=== PATIENT | female | born 1960 | race Caucasian/White ===

== ENCOUNTER 2016-04-01 02:30 | Emergency (ER) | payer SELFPAY ==
[2016-04-01] MEDS ORDERED: RX INFO: IV CONTRAST WAS GIVEN 1 EACH MISC MISCELLANE PRN (03:13)
[2016-04-01] MEDS ORDERED: SODIUM CHLORIDE 0.9% 1,000 ML IV STA ×2 (03:13→04:31)
[2016-04-01] MEDS ORDERED: ACETAMINOPHEN IV (For NPO) 1,000 MG in SALINE 100 100ML.BAG IVPB STA (03:13)
[2016-04-01] MEDS ORDERED: diphenhydrAMINE 50 MG/ML 1 ML VIAL IVP STA (03:13)
--- NOTE | 2016-04-01 03:16 | ED ---
General Adult HPI - General Source: patient, EMS, RN notes reviewed Mode of arrival: EMS Limitations: no limitations <Mike Easton - Last Filed: 04/01/16 03:31> <Trae Andre - Last Filed: 04/01/16 05:12> - General Chief complaint: Headache Stated complaint: head pain Time Seen by Provider: 04/01/16 02:52 - History of Present Illness Initial comments: Patient's a 56-year-old female who presents emergency room today by EMS, the chief complaint of a headache that began at 6 PM last night. She states it was sudden onset of a headache located in the back of her head. Describes it as "throbbing". Currently rates as 08/13. Does admit that she's tried aspirin at home with no relief of symptoms. States she usually does not have headaches. Does offer further history stating that she had her hair done 2 days ago had her neck back in the sink. States unsure if this is related. Does admit that the pain is somewhat worse with rotation in certain movements of her neck. Patient does admit to some photosensitivity. She denies any other complaints or symptoms. Patient denies any recent fever, chills, shortness of breath, chest pain, back pain, abdominal pain, nausea or vomiting, numbness or tingling , dysuria or hematuria, constipation or diarrhea, visual changes, or any other complaints. (Mike Easton) - Related Data Home Medications Medication Instructions Recorded Confirmed Aspirin 325 mg PO DAILY 03/09/15 04/01/16 Ergocalciferol [Vitamin D2] 50,000 unit PO Q7D 03/09/15 04/01/16 amLODIPine [Norvasc] 10 mg PO DAILY 03/09/15 04/01/16 ALPRAZolam [Xanax] 0.25 mg PO TID PRN 04/01/16 04/01/16 DULoxetine HCL [Cymbalta] 60 mg PO DAILY 04/01/16 04/01/16 Allergies Allergy/AdvReac Type Severity Reaction Status Date / Time cephalexin monohydrate Allergy Dyspnea Verified 04/01/16 02:40 [From Keflex] Review of Systems ROS Other: All systems not noted in ROS Statement are negative. <Mike Easton - Last Filed: 04/01/16 03:31> ROS Other: All systems not noted in ROS Statement are negative. <Trae Andre - Last Filed: 04/01/16 05:12> ROS Statement: Those systems with pertinent positive or pertinent negative responses have been documented in the HPI. Past Medical History Past Medical History: Asthma, Hypertension, Myocardial Infarction (IA), Sleep Apnea/CPAP/BIPAP, Thyroid Disorder Additional Past Medical History / Comment(s): HX GEST. DIABETES. BEING CHECKED FOR SLEEP APNEA History of Any Multi-Drug Resistant Organisms: None Reported Past Surgical History: Section, Heart Catheterization, Tubal Ligation, Uterine Ablation Past Anesthesia/Blood Transfusion Reactions: Motion Sickness, Postoperative Nausea & Vomiting (PONV) Past Psychological History: Anxiety Smoking Status: Never smoker Past Alcohol Use History: Occasional Past Drug Use History: None Reported - Past Family History Father Family Medical History: Cancer <EastonMike - Last Filed: 04/01/16 03:31> General Exam Limitations: no limitations <EastonMike - Last Filed: 04/01/16 03:31> General appearance: alert, in no apparent distress Head exam: Present: atraumatic, normocephalic, normal inspection Eye exam: Present: normal appearance, PERRL, EOMI. Absent: scleral icterus, conjunctival injection, periorbital swelling ENT exam: Present: normal exam, mucous membranes moist Neck exam: Present: normal inspection. Absent: tenderness, meningismus, lymphadenopathy Respiratory exam: Present: normal lung sounds bilaterally. Absent: respiratory distress, wheezes, rales, rhonchi, stridor Cardiovascular Exam: Present: regular rate, normal rhythm, normal heart sounds. Absent: systolic murmur, diastolic murmur, rubs, gallop, clicks GI/Abdominal exam: Present: soft, normal bowel sounds. Absent: distended, tenderness, guarding, rebound, rigid Extremities exam: Present: normal inspection, full ROM, normal capillary refill. Absent: tenderness, pedal edema, joint swelling, calf tenderness Back exam: Present: normal inspection Neurological exam: Present: alert, oriented X3, CN II-XII intact Psychiatric exam: Present: normal affect, normal mood Skin exam: Present: warm, dry, intact, normal color. Absent: rash <Trae Andre - Last Filed: 04/01/16 05:12> - General Exam Comments Initial Comments: General: The patient is awake and alert, in no distress, and does not appear acutely ill. Eye: Pupils are equal, round and reactive to light, extra-ocular movements are intact. No nystagmus. There is normal conjunctiva bilaterally. No signs of icterus. Ears, nose, mouth and throat: There are moist mucous membranes and no oral lesions. Neck: The neck is supple, there is no tenderness or JVD. Cardiovascular: There is a regular rate and rhythm. No murmur, rub or gallop is appreciated. Respiratory: Lungs are clear to auscultation, respirations are non-labored, breath sounds are equal. No wheezes, stridor, rales, or rhonchi. Musculoskeletal: Normal appearance of cervical spine. No step-offs or deformities. Mild tenderness at C1, C2, C3. Patient does have paravertebral tenderness both on the left and right sides. Strength 5/5. Sensation intact. Pulses equal bilaterally 2+. Neurological: A&O x 3. CN II-XII intact, There are no obvious motor or sensory deficits. Coordination appears grossly intact. Speech is normal. Skin: Skin is warm and dry and no rashes or lesions are noted. Psychiatric: Cooperative, appropriate mood & affect, normal judgment. (Mike Easton) No neurological deficit noted (Trae Andre) Course <iMke Easton - Last Filed: 04/01/16 03:31> <Trae Andre - Last Filed: 04/01/16 05:12> Vital Signs 04/01/16 04/01/16 02:32 03:47 Temperature 98.1 F 97.8 F Pulse Rate 79 78 Respiratory 18 20 Rate Blood Pressure 159/71 149/67 O2 Sat by Pulse 94 L 98 Oximetry - Reevaluation(s) Reevaluation #1: 04/01/16 03:32 Case discussed and signed out to attending Dr Andre. (Mike Easton) Reevaluation #2: 04/01/16 05:03 Patient's headache is currently resolved (Trae Andre) Medical Decision Making <Mike Easton - Last Filed: 04/01/16 03:31> - Lab Data Result diagrams: 04/01/16 03:30 04/01/16 03:30 - Radiology Data Radiology results: report reviewed (CT brain and CT angiogram neck is negative for acute disease), image reviewed <Trae Andre - Last Filed: 04/01/16 05:12> - Medical Decision Making 56 female to ER year with sudden onset headache mild. Throbbing in nature with photophobia. Patient's headache has resolved with medication. States she does have occasional headaches. This is not the worse headache of her life, patient again remains without headache no neurological symptoms mild nausea no vomiting. (Trae Andre) - Lab Data Lab Results 04/01/16 04/01/16 Range/Units 03:30 03:30 WBC 6.7 (3.8-10.6) k/uL RBC 4.96 (3.80-5.40) m/uL Hgb 14.2 (11.4-16.0) gm/dL Hct 43.8 (34.0-46.0) % MCV 88.3 D (80.0-100.0) fL MCH 28.7 (25.0-35.0) pg MCHC 32.5 (31.0-37.0) g/dL RDW 12.7 (11.5-15.5) % Plt Count 335 (150-450) k/uL Neutrophils % 56 % Lymphocytes % 30 % Monocytes % 9 % Eosinophils % 3 % Basophils % 0 % Neutrophils # 3.8 (1.3-7.7) k/uL Lymphocytes # 2.0 (1.0-4.8) k/uL Monocytes # 0.6 (0-1.0) k/uL Eosinophils # 0.2 (0-0.7) k/uL Basophils # 0.0 (0-0.2) k/uL Sodium 142 (137-145) mmol/L Potassium 4.4 (3.5-5.1) mmol/L Chloride 108 H (98-107) mmol/L Carbon Dioxide 23 (22-30) mmol/L Anion Gap 11 mmol/L BUN 17 (7-17) mg/dL Creatinine 0.70 (0.52-1.04) mg/dL Est GFR (MDRD) Af Amer >60 (>60 ml/min/1.73 sqM) Est GFR (MDRD) Non-Af >60 (>60 ml/min/1.73 sqM) Glucose 116 H (74-99) mg/dL Calcium 10.3 H (8.4-10.2) mg/dL Total Bilirubin 0.5 (0.2-1.3) mg/dL AST 29 (14-36) U/L ALT 44 (9-52) U/L Alkaline Phosphatase 101 (38-126) U/L Total Protein 7.3 (6.3-8.2) g/dL Albumin 4.2 (3.5-5.0) g/dL Disposition <Mike Easton - Last Filed: 04/01/16 03:31> <Trae Andre - Last Filed: 04/01/16 05:12> Clinical Impression: Migraine, Tension headache Disposition: HOME SELF-CARE Condition: Good Instructions: Acute Headache (ED) Referrals: Woo Martinez DO [Primary Care Provider] - 1-2 days
--- NOTE | 2016-04-01 03:27 | CT ---
EXAMINATION TYPE: CT brain cspine wo con DATE OF EXAM: 04/01/2016 3:13 AM COMPARISON: 10/29/2009 HISTORY: Posterior head and neck pain. Prior brain without contrast on 10.29.09. CT DLP: Head 1033.40, Body 284.0 mGycm Automated exposure control for dose reduction was used. TECHNIQUE: CT scan of the head and cervical spine are performed without contrast. FINDINGS: The ventricles and sulci appear normal. There is no mass effect nor midline shift. There is no sign of intracranial hemorrhage. Calvarium appears intact. There is mild straightening of the vertebra. There is mild narrowing at C5-6 disc space. There is spu rring of the endplates at C5-6. Posterior elements are intact. Facet joints are intact. Atlantoaxial facet joint is normal. Skull base is intact. IMPRESSION: Negative CT scan of the brain. No change compared to old exam. Degenerative disc changes at C5-6. Otherwise negative CT scan of cervical spine. No fracture.
[2016-04-01 03:48] VITALS: PULSE 78
[2016-04-01 03:54] LABS: Basophils % (A) 0 %; CH 29.5; CHCM 33.5; Eosinophils # (A) 0.2 k/uL (0-0.7); Eosinophils % (A) 3 %; HCT 43.8 % (34.0-46.0); HGB 14.2 gm/dL (11.4-16.0); Luc # (Auto) 0.15; Luc % (Auto) 2; Lymphocytes % (A) 30 %; MCH 28.7 pg (25.0-35.0); MCHC 32.5 g/dL (31.0-37.0); Mean Platelet Volume 6.6; Monocytes # (A) 0.6 k/uL (0-1.0); Monocytes % (A) 9 %; Neutrophils # (A) 3.8 k/uL (1.3-7.7); Neutrophils % (A) 56 %; RBC 4.96 m/uL (3.80-5.40); RDW 12.7 % (11.5-15.5); WBC 6.7 k/uL (3.8-10.6); WBC (Perox) 6.63
[2016-04-01 04:07] LABS: ALT 44 U/L (9-52); AST 29 U/L (14-36); Alkaline Phosphatase 101 U/L (38-126); Anion Gap 11 mmol/L; Blood Urea Nitrogen 17 mg/dL (7-17); Calcium 10.3 mg/dL (8.4-10.2); Carbon Dioxide 23 mmol/L (22-30); Chloride 108 mmol/L (98-107); Glucose 116 mg/dL (74-99); Non-African American GFR(MDRD) >60 (>60 ml/min/1.73 sqM); Potassium 4.4 mmol/L (3.5-5.1); Sodium 142 mmol/L (137-145); Total Bilirubin 0.5 mg/dL (0.2-1.3); Total Protein 7.3 g/dL (6.3-8.2)
[2016-04-01 04:30] LABS: MCV 88.3 fL (80.0-100.0)
--- NOTE | 2016-04-01 04:52 | CT ---
EXAMINATION TYPE: CT angio head neck DATE OF EXAM: 04/01/2016 4:43 AM COMPARISON: NONE HISTORY: Posterior head and neck pain. CT DLP: DLP: 3077 mGycm Automated exposure control for dose reduction was used. CONTRAST: Performed with IV Contrast, patient injected with 100ml. mL of Omnipaque 350. There are 3-D post proc essed images. FINDINGS: There is normal branching pattern of the great vessels on the aortic arch. The carotid arteries are widely patent. There is normal opacification of the jugular veins. There is normal contrast opacification of the vertebral arteries. There is arterial flow in the anterior middle and posterior cerebral arteries. There is no evidence o f aneurysm or neovascularity. There is arterial flow in the vertebrobasilar artery system. There is n ormal contrast opacification of the intracranial venous sinuses. IMPRESSION: NORMAL CT ANGIOGRAM OF THE NECK. NORMAL CT ANGIOGRAM OF THE BRAIN.
[2016-04-01] MEDS ORDERED: methylPREDNISolone SOD SUCCI 125 MG/2 ML VIAL IV STA (05:11)
[2016-04-01] MEDS ORDERED: KETOROLAC 30 MG/ML 1 ML VIAL IVP STA (05:11)
[2016-04-01 05:26] VITALS: BP 139/78; RESP 18; TEMP 97.5
== END 2016-04-01 05:25 | disposition home or self-care (01) ==
LOC: EC 02:30
DX: G43.909 Migraine, unspecified, not intractable, without status migrainosus (principal); L56.8 Other specified acute skin changes due to ultraviolet radiation; I10 Essential (primary) hypertension; I25.2 Old myocardial infarction; F41.9 Anxiety disorder, unspecified; Z79.82 Long term (current) use of aspirin; Z79.899 Other long term (current) drug therapy; Z88.1 Allergy status to other antibiotic agents
CPT/HCPCS: 99284 ×2; 96374 ×2; 96375 ×3; 96361 ×3; 36415; 80053; 85025; 72125; 70496; 70450; 70498; J1200; J2930; Q9967; J1885; J0131

== ENCOUNTER → 2016-10-03 | Outpatient (CLI) | payer OTHER ==
--- NOTE | 2016-10-03 11:36 | XR ---
Right shoulder HISTORY: Right shoulder pain 3 views of the right shoulder Bone mineralization, joint spaces and alignment are maintained. Right lung apex as visualized is norm al. No fracture or dislocation. IMPRESSION: No abnormality evident to account for patient's symptoms.
== END | disposition home or self-care (01) ==
LOC: RADXRYALE 11:03
PROVIDERS: ATTEND Physician Assistant Medical
DX: M25.511 Pain in right shoulder (principal)

== ENCOUNTER 2016-11-01 09:11 | Day surgery (SDC) | payer OTHER ==
[2016-10-17 09:39] VITALS: BMI 32.4
[~2016-11-01 09:11] MED LIST: LACTATED RINGERS 1,000 ML IV SCH; LIDOCAINE 1% 20 ML VIAL (10MG/ML) FOR IV START INTRADERMA PRN
[2016-11-01] MEDS ORDERED: LACTATED RINGERS 1,000 ML IV ONE (09:21)
[2016-11-01] MEDS ORDERED: LIDOCAINE 1% 20 ML VIAL (10MG/ML) FOR IV START INTRADERMA ONE (09:22)
[2016-11-01 09:27] VITALS: RESP 18; TEMP 98.2
[2016-11-01] MEDS ORDERED: PROPOFOL 10 MG/ML 20 ML VIAL IV ONE (10:33)
--- NOTE | 2016-11-01 11:11 | P.PCN ---
Date of Procedure: 11/01/16 Preoperative Diagnosis: Postoperative Diagnosis: Procedure(s) Performed: Procedure: Total colonoscopy. Preoperative diagnosis: Screening for neoplasia. Postoperative diagnosis: Exam within normal limits. Preparation: HalfLytely prep. Sedation: Was provided by anesthesia. Brief clinical history: The patient is a 56-year-old female who is referred for this evaluation for screening for neoplasia. She believes she had a prior exam at age 49. There is no family history of colon cancer. The patient has no abdominal complaints, bleeding or anemia. Procedure: With the patient on her left lateral decubitus position and after informed consent and adequate sedation, the perianal area was inspected and it did not show any fissures or fistulas. There were no masses felt on digital rectal examination. The Olympus CFQ 160L video colonoscope was then inserted in the rectum in the usual fashion and advanced to the cecum. The preparation was good. The mucosa appeared healthy. No polyps or tumors were seen or any obvious diverticular disease or other pathology. I retroflexed the endoscope in the rectum before the endoscope was withdrawn. The patient tolerated the procedure well. Plan: The patient was reassured. I recommended repeat exam in 10 years. She will follow-up with you as planned. Implants: Indications for Procedure: Operative Findings: Description of Procedure:
[2016-11-01] MEDS ORDERED: ONDANSETRON 4 MG/2 ML VIAL IVP ONE (11:35)
[2016-11-01 11:54] VITALS: BP 125/75; PULSE 57
== END 2016-11-01 12:00 | disposition home or self-care (01) ==
LOC: ORWHC2ENDO 09:11
DX: Z12.11 Encounter for screening for malignant neoplasm of colon (principal); I25.10 Atherosclerotic heart disease of native coronary artery without angina pectoris; I10 Essential (primary) hypertension; G47.33 Obstructive sleep apnea (adult) (pediatric); E11.9 Type 2 diabetes mellitus without complications; E07.9 Disorder of thyroid, unspecified; F41.9 Anxiety disorder, unspecified; I25.2 Old myocardial infarction; Z88.1 Allergy status to other antibiotic agents; Z79.899 Other long term (current) drug therapy
CPT/HCPCS: J2405; J2704; G0121

== ENCOUNTER → 2017-04-18 | Outpatient (CLI) | payer OTHER ==
--- NOTE | 2017-04-18 10:42 | US ---
EXAMINATION TYPE: US thyroid st tissue head/neck DATE OF EXAM: 04/18/2017 COMPARISON: CTA head and neck April 01, 2016 CLINICAL HISTORY: E21.0 PRIMARY HYPERPARATHYROIDISM. GLAND SIZE: Right Lobe: 3.8 x 1.1 x 1.1 cm Overall Parenchyma: homogenous Left Lobe: 3.1 x 1.0 x 1.0 cm Overall Parenchyma: homogeneous Isthmus Thickness: 0.2 cm NODULES RIGHT: # of nodules measured on right: 0 LEFT: # of nodules measured on left: 0 ISTHMUS: # of nodules measured in the isthmus: 1 left lateral nodule 1. 0.6 X 0.7 x 0.4 cm isoechoic solid nodule with well-defined margins. This nodule is wider than tall and shows no intranodular vascularity. Prior size: x x cm Bilateral neck scanned, no evidence of lymphadenopathy. Thyroid gland is overall small in size and fairly homogeneous in appearance with single small 7 mm hy poechoic round solid nodule marked laterally in the left aspect of isthmus. IMPRESSION: Small size thyroid redemonstrated. No suspicious extrathyroid nodules to suggest parathyroid adenoma identified on images saved.
[2017-04-18 10:52] LABS: ALT 30 U/L (9-52); AST 19 U/L (14-36); Albumin 4.4 g/dL (3.5-5.0); Alkaline Phosphatase 90 U/L (38-126); Anion Gap 12 mmol/L; Blood Urea Nitrogen 14 mg/dL (7-17); Calcium 10.7 mg/dL (8.4-10.2); Carbon Dioxide 27 mmol/L (22-30); Chloride 107 mmol/L (98-107); Glucose 78 mg/dL (74-99); Potassium 4.5 mmol/L (3.5-5.1); Sodium 146 mmol/L (137-145); Total Bilirubin 0.2 mg/dL (0.2-1.3); Total Protein 7.3 g/dL (6.3-8.2)
--- NOTE | 2017-04-18 14:31 | BD ---
EXAMINATION TYPE: MG DEXA axial skeleton. DATE OF EXAM: 04/18/2017 CLINICAL HISTORY: Height: 64.5 Weight: 189 FRAX RISK QUESTIONS: Alcohol (3 or more units per day): no Family History (Parent hip fracture): no Glucocorticoids (More than 3mos): very very rarely uses inhaler (Ex: prednisone, prednisolone, methylprednisolone, dexamethasone, and hydrocortisone). History of Fracture in Adulthood: no Secondary Osteoporosis: 1. Type 1 Diabetes: no, pre-diabetic 2. Hyperthyroidism: no 3. Menopause before 45: yes 4. Malnutrition: no 5. Chronic liver disease: no Rheumatoid Arthritis: no Current Tobacco Use: no RISK FACTORS HISTORY OF: Family History of Osteoporosis: not to patient's knowledge Active: yes Diet low in dairy products/other sources of calcium: no Postmenopausal woman: yes Take estrogen and/or progesterone medications: no Lost more than 2 inches in height since high school: no Frequent falls: no Poor Health: fair health Hyperparathyroidism: yes, primary Adrenal Insufficiency: no MEDICATIONS: Prednisone or other steroids: very very rarely How Long: a couple years Thyroid Medications: yes Which medication: "fake" synthroid How Long: about 20 years Osteoporosis Medications: no Additional Medications: blood pressure meds Additional History: Hypercalcemia EXAM MEASUREMENTS: Bone mineral densitometry was performed using the [employer] System. Bone mineral density as measured about the Lumbar spine is: ----- L1-L4(G/cm2): 1.193 T Score Values are as follows: ----- L2: 0.1 ----- L3: 0.1 ----- L4: 0.2 ----- L1-L4: 0.1 Bone mineral density BASELINE Bone mineral density about the R hip (g/cm2): 0.857 Bone mineral density about the L hip (g/cm2): 0.872 T Score values are as follows: -----R Neck: -1.3 -----L Neck: -1.2 -----R Total: -0.8 -----L Total: -0.5 Bone mineral density BASELINE IMPRESSION: Osteopenia (T Score between -2.5 and 1) at the femoral neck level in both hips. There is slightly increased risk of fracture and patient may be considered for treatment. Re-Screen 2-5 years. NOTE: T-SCORE=SD OF THE YOUNG ADULT MEAN.
[2017-04-18 17:19] LABS: Parathyroid Hormone Intact 63.6 pg/mL (14.0-72.0)
== END | disposition home or self-care (01) ==
LOC: RADUSWWP 09:27
PROVIDERS: ATTEND Internal Medicine Endocrinology, Diabetes & Metabolism
DX: M85.852 Other specified disorders of bone density and structure, left thigh (principal); M85.851 Other specified disorders of bone density and structure, right thigh; E21.0 Primary hyperparathyroidism
CPT/HCPCS: 36415; 76536; 77080; 80053; 82306; 83970

== ENCOUNTER → 2017-04-27 | Outpatient (CLI) | payer OTHER ==
[2017-04-27 12:59] LABS: Collection Time,Urine 24 hrs; Total Volume 24 Hour,Urine 500 mls (800-1800)
[2017-04-27 14:21] LABS: Calcium 24 Hour,Urine >178.0 mg/24 hr
== END | disposition home or self-care (01) ==
LOC: LABWHC1 11:38
PROVIDERS: ATTEND Internal Medicine Endocrinology, Diabetes & Metabolism
DX: E21.0 Primary hyperparathyroidism (principal)
CPT/HCPCS: 81050; 82340

== ENCOUNTER → 2018-07-11 | Outpatient (CLI) | payer OTHER ==
--- NOTE | 2018-07-11 11:23 | MM ---
Reason for exam: screening (asymptomatic). Last mammogram was performed 3 years and 10 months ago. History: Family history of breast cancer in paternal grandmother. Physical Findings: A clinical breast exam by your physician is recommended on an annual basis and results should be correlated with mammographic findings. MG Screening Mammo w CAD Bilateral CC and MLO view(s) were taken. Prior study comparison: August 27, 2014, bilateral MG screening mammo w CAD. There are scattered fibroglandular densities. No significant changes when compared with prior studies. ASSESSMENT: Negative, BI-RAD 1 RECOMMENDATION: Routine screening mammogram of both breasts in 1 year.
== END | disposition home or self-care (01) ==
LOC: RADMAMWWP 07:25
PROVIDERS: ATTEND Family Medicine
DX: Z12.31 Encounter for screening mammogram for malignant neoplasm of breast (principal)
CPT/HCPCS: 77067

== ENCOUNTER → 2018-10-18 | Outpatient (CLI) | payer OTHER ==
--- NOTE | 2018-10-18 16:05 | US ---
EXAMINATION TYPE: US carotid duplex BILAT DATE OF EXAM: 10/18/2018 COMPARISON: CT 2017 CLINICAL HISTORY: Other symptoms involving cardiovascular system. Bruit EXAM MEASUREMENTS: RIGHT: Peak Systolic Velocity (PSV) cm/sec ----- Right CCA: 70.8 ----- Right ICA: 90.0 ----- Right ECA: 120.0 ICA/CCA ratio: 1.3 RIGHT: End Diastole cm/sec ----- Right CCA: 18.4 ----- Right ICA: 37.0 ----- Right ECA: 18.9 LEFT: Peak Systolic Velocity (PSV) cm/sec ----- Left CCA: 73.0 ----- Left ICA: 73.9 ----- Left ECA: 152.9 ICA/CCA ratio: 1.0 LEFT: End Diastole cm/sec ----- Left CCA: 20.6 ----- Left ICA: 30.2 ----- Left ECA: 18.8 VERTEBRALS (direction of flow): Right Vertebral: Antegrade Left Vertebral: Antegrade Rhythm: Normal Bilateral intimal thickening, elevated velocity: left proximal ECA, no significant stenosis. IMPRESSION: Mild degree of grayscale atheromatous plaquing with no sonographically evident hemodynam ically significant stenosis within either visualized carotid arterial system. Criteria for Assigning % of Stenosis / Diameter reduction (Estimation based on the indirect measurements of the internal carotid artery velocities (ICA PSV). 1. Normal (no stenosis)=ICA PSV < 125 cm/s: ratio < 2.0: ICA EDV<40 cm/s. 2. Less than 50% stenosis=ICA PSV < 125 cm/s: ratio < 2.0: ICA EDV<40 cm/s. 3. 50 to 69% stenosis=ICA PSV of 125 to 230 cm/s: ration 2.0 ? 4.0: ICA EDV 40-100 cm/s. 4. Greater than 70% stenosis to near occlusion= ICA PSV > 230 cm/s: ratio > 4.0: ICA EDV > 100 cm/s. 5. Near occlusion= ICA PSV velocities may be low or undetectable: variable ratio and ICA EDV. 6. Total occlusion=unable to detect flow.
== END | disposition home or self-care (01) ==
LOC: RADUSWWP 15:34
PROVIDERS: ATTEND Family Medicine
DX: I65.23 Occlusion and stenosis of bilateral carotid arteries (principal)
CPT/HCPCS: 93880

== ENCOUNTER → 2020-12-31 | Outpatient (CLI) | payer OTHER ==
--- NOTE | 2021-01-05 11:35 | MM ---
Reason for exam: screening (asymptomatic). Last mammogram was performed 2 years and 6 months ago. History: Family history of breast cancer in paternal grandmother. Physical Findings: A clinical breast exam by your physician is recommended on an annual basis and results should be correlated with mammographic findings. MG 3D Screening Mammo W/Cad Bilateral CC and MLO view(s) were taken. Prior study comparison: July 11, 2018, bilateral MG screening mammo w CAD. August 27, 2014, bilateral MG screening mammo w CAD. There is no discrete abnormality. ASSESSMENT: Negative, BI-RAD 1 RECOMMENDATION: Routine screening mammogram of both breasts in 1 year.
== END | disposition home or self-care (01) ==
LOC: MERGE 09:40 → RADMAMWWP 09:40
PROVIDERS: ATTEND Family Medicine
DX: Z12.31 Encounter for screening mammogram for malignant neoplasm of breast (principal)
CPT/HCPCS: 77063; 77067

== ENCOUNTER → 2021-06-15 | Outpatient (CLI) | payer OTHER ==
--- NOTE | 2021-06-15 16:36 | P.PN ---
Subjective Progress Note Date: 06/15/21 I'm seeing this 62-year-old female patient for a compliance check regarding her obstructive sleep apnea. The patient was diagnosed having severe CAMILLE echo in January 2021 and the patient had an AHI of 35. Subsequently, she underwent a successful CPAP titration and she was offered a CPAP unit which is currently in the APAP mode at the pressure minimum of 5 and a maximum of 13. The patient is using his Simplus fullface mask. She is doing well. No complaints pH is reported marked improvement in her sleep quality. She is losing weight and she has lost approximately 20 pounds and current weight is down to 196 pounds. Her [place] score is a 13. She spent the winter in [place] and she is currently back to [place]. I checked her CPAP unit. I checked that the patient has been extremely compliant. The patient has utilize her machine every night without any interruption and she has achieved more than 4 hours 90% of the time. Her average usage of the machine is around 8.1 hours per night and her average pressure delivered by the machine is around 12 cm of water and the leak is in the order of 10 L per minute and her AHI is down to 1.4. She has no new complaints otherwise for now. No tiredness to no sleepiness. No headaches. No shortness of breath. No snoring while under treatment. She has not utilized a humidification system of the machine. Objective - Exam the patient has a BP of 134/57 with a pulse of 71 and a respiration of 16 and a weight of 196 and the current [place] scores a 13 Gen. appearance the patient is calm and comfortable, not in acute distress The patient appeared well nourished and normally developed. Vital signs as documented. Head exam is unremarkable. No scleral icterus or corneal arcus noted. Neck is without jugular venous distension, thyromegaly, or carotid bruits. Carotid upstrokes are brisk bilaterally. Lungs are clear to auscultation and percussion. Cardiac exam reveals the PMI to be normally sized and situated. Rhythm is regular. First and second heart sounds normal. No murmurs, rubs or gallops. Abdominal exam reveals normal bowel sounds, no masses, no organomegaly and no aortic enlargement. Extremities are nonedematous and both femoral and pedal pulses are normal.Examination of the skin revealed no evidence of significant rashes, suspicious appearing nevi or other concerning lesions.Neurologically, the patient is awake and alert and the patient does not have any focal neurological deficit. Cranial nerves are essentially intact. Assessment and Plan Plan: 1 severe symptomatic obstructive sleep apnea with an AHI of 35. The patient underwent successful CPAP therapy 2 chronic hypersomnia, improved with CPAP therapy 3 chronic anxiety 4 hypertension 5 hypothyroidism 6 history of coronary artery disease Plan Continue CPAP therapy. The patient will be kept on APAP mode pressure minimum of 5 and a maximum of 13. The patient has lost weight and she intends to lose more and keeping it on APAP mode is favorable. I'm going to suggest to keep the Simplus fullface mask. No need for any further adjustments on her pressure setting. Encourage maintaining good sleep hygiene measures. Treatment is successful. The patient reports marked improvement. Compliancy data is satisfactory. I'll see the patient back in my office in a year's time in follow-up. No active issues for now. Treatment is successful.
== END | disposition home or self-care (01) ==
LOC: SLEEP 16:03
PROVIDERS: ATTEND Internal Medicine Critical Care Medicine
DX: Z53.9 Procedure and treatment not carried out, unspecified reason (principal)

== ENCOUNTER 2021-08-10 10:59 | Observation (INO) | payer OTHER ==
[2021-08-06 14:48] VITALS: BMI 36.0
--- NOTE | 2021-08-09 09:41 | HP ---
HISTORY AND PHYSICAL CHIEF COMPLAINT: Left knee pain. HISTORY OF PRESENT ILLNESS: The patient is a 61-year-old female who presents with progressive left knee pain for the past several years, worsening recently. She is having pain with weight-bearing activities and at night. She has tried medications in addition to injections, activity modifications and attempted weight loss, without much relief. PAST MEDICAL HISTORY: Significant for heart disease, hypothyroidism and hypertension. PAST SURGICAL HISTORY: Significant for partial thyroidectomy and section. CURRENT MEDICATIONS: Aspirin, Celexa, Norvasc, spironolactone, Synthroid, Wellbutrin, Zetia and Naprosyn. ALLERGIES: KEFLEX. FAMILY HISTORY: Significant for cancer. SOCIAL HISTORY: Negative for current tobacco or alcohol use. REVIEW OF SYSTEMS: Sixteen-point review of systems otherwise reviewed and is noncontributory. PHYSICAL EXAMINATION: On examination, the patient is approximately 5 feet 4 inches, 215 pounds of endomorphic habitus. HEENT exam is nonfocal. Neck is supple. She has painless passive motion of the left hip. Straight-leg raise is negative. Active motion of left knee: Minus 10 to 110 degrees of flexion. She has mild effusion. She is tender about the medial joint line. Collaterals are stable. Ernestine is negative. See's is equivocal. She has genu varum alignment. Her distal neurovascular exam appears intact in the left lower extremity. Weight-bearing notch, lateral and Merchant views of the left knee obtained in the office show severe medial and patellofemoral compartment narrowing with [id number] changes, subchondral sclerosis and significant medial compartment spurring. IMPRESSION: Left knee severe medial and patellofemoral compartment osteoarthrosis. RECOMMENDATIONS: I talked to the patient at length regarding her condition along with treatment options. At this point she is quite limited because of pain related to her osteoarthrosis despite extensive conservative measures. After thorough discussion, she opts to proceed with surgery. We will plan to proceed with left total knee arthroplasty. We will institute DVT prophylaxis postoperatively. Risks and benefits were discussed at length in layman's terms. MMODL / IJN: [id number] /
[~2021-08-10 10:59] MED LIST changes: +ACETAMINOPHEN TAB 500 MG TAB PO PRN; +HYDROmorphone 0.5 MG/0.5 ML SYRINGE IVP PRN; -LACTATED RINGERS 1,000 ML IV SCH; +LIDOCAINE 1% (10MG/ML) FOR IV START INTRADERMA PRN; -LIDOCAINE 1% 20 ML VIAL (10MG/ML) FOR IV START INTRADERMA PRN; +MELOXICAM 7.5 MG TAB PO PRN; +ONDANSETRON 4 MG/2 ML VIAL IVP ONE; +TRANEXAMIC ACID IN NACL,ISO-OS 1,000 MG in SALINE 1 100ML.BAG IVPB PRN
[2021-08-10] MEDS: LACTATED RINGERS 1,000 ML IV SCH (11:16)
[2021-08-10] MEDS ORDERED: SCOPOLAMINE 1 MG/72 HR PATCH TRANSDERM ONE (11:53)
[2021-08-10] MEDS ORDERED: fentaNYL (PF) 50 MCG/ML 2 ML AMP IVP ONE (12:08)
[2021-08-10] MEDS ORDERED: MIDAZOLAM 2 MG/2 ML VIAL IVP ONE (12:08)
[2021-08-10] MEDS ORDERED: PROPOFOL 10 MG/ML 20 ML VIAL IV ONE (12:48)
[2021-08-10] MEDS ORDERED: MIDAZOLAM 2 MG/2 ML VIAL ONE (12:48)
[2021-08-10] MEDS ORDERED: fentaNYL (PF) 50 MCG/ML 2 ML AMP ONE (12:48)
[2021-08-10] MEDS ORDERED: ROPIVACAINE 5 MG/ML 30 ML VIAL ONE (12:48)
[2021-08-10] MEDS ORDERED: SODIUM CHLORIDE 0.9% (PF) 10 ML VIAL ONE (12:48)
[2021-08-10] MEDS ORDERED: GLYCOPYRROLATE 0.2 MG/ML 2 ML VIAL ONE (12:48)
--- NOTE | 2021-08-10 12:48 | P.ANPRN ---
Procedure Note - Anesthesia - Nerve Block Performed Left Adductor Canal Infusion Time Out Performed: Yes (1208) Date of Procedure: 08/10/21 Procedure Start Time: 12:09 Procedure Stop Time: 12:16 Location of Patient: PreOp Indication: Acute Post-Operative Pain, Requested by Surgeon Specifically requested for management of pain by : Guille Estrada Sedation Type: Sedate with meaningful contact maintained Preparation: Sterile Prep, Sterile Dressing Position: Supine Catheter Depth at Skin (cm): 8 Catheter: Indwelling Needle Types: Pajunk Needle Gauge: 21 Ultrasound used to visualize needle placement: Yes Ultrasound used to observe medication spread: Yes Injectate: 0.5% Ropivacaine (see comment for volume) (15cc+5cc nacl) Blood Aspirated: No Pain Paresthesia on Injection Noted: No Resistance on Injection: Normal Image Stored and Saved: Yes Events: Uneventful and Well Tolerated
--- NOTE | 2021-08-10 12:50 | P.ANPRN ---
Procedure Note - Anesthesia - Nerve Block Performed Left iPack Single Time Out Performed: Yes (1207) Date of Procedure: 08/10/21 Procedure Start Time: 12:17 Procedure Stop Time: 12:21 Location of Patient: PreOp Indication: Acute Post-Operative Pain, Requested by Surgeon Specifically requested for management of pain by DrCorrie: Guille Estrada Sedation Type: Sedate with meaningful contact maintained Preparation: Sterile Prep, Sterile Dressing Position: Supine Catheter: None Needle Types: Pajunk Needle Gauge: 21 Ultrasound used to visualize needle placement: Yes Ultrasound used to observe medication spread: Yes Injectate: 0.5% Ropivacaine (see comment for volume) (15cc + 5cc nacl) Blood Aspirated: No Pain Paresthesia on Injection Noted: No Resistance on Injection: Normal Image Stored and Saved: Yes Events: Uneventful and Well Tolerated
[2021-08-10] MEDS ORDERED: ceFAZolin 1,000 MG in SODIUM CHLORIDE 0.9% 1,000 ML IRRIGATION ONE (13:21)
[2021-08-10] MEDS ORDERED: HYDROcodone/APAP 5-325MG 1 EACH TAB PO PRN (14:27)
[2021-08-10] MEDS ORDERED: HYDROmorphone 0.5 MG/0.5 ML SYRINGE IVP PRN (14:27)
[2021-08-10] MEDS ORDERED: NALOXONE 0.4 MG/ML 1 ML VIAL IV PRN (14:27)
--- NOTE | 2021-08-10 14:53 | P.OP ---
Date of Procedure: 08/10/21 Preoperative Diagnosis: Left knee severe tricompartmental osteoarthrosis Postoperative Diagnosis: Same Procedure(s) Performed: Left total knee arthroplastycementedcruciate retaining Implants: Depuy Attune size 5 narrow cemented femoral component, size 4 cemented tibial component, 9 mm articular surface, 35 mm cemented patellar component. This was a cruciate retaining implant. Anesthesia: regional, spinal Surgeon: Guille Estrada Rubber Grinder #1: Jaylon Pelaez Estimated Blood Loss (ml): 50 Pathology: other (Bone fragments) Condition: stable Disposition: PACU Indications for Procedure: The patient is a 61-year-old female presents with progressive left knee pain secondary to osteoarthrosis despite conservative measures. A discussion of the risks and benefits of operative intervention versus continued conservative measures was made with patient. She opted proceed with surgery. Operative risks to include infection, neurovascular injury, development of blood clots, fracture, possible component loosening/failure need for subsequent procedures was discussed. Informed consent was obtained. Operative Findings: As below Description of Procedure: The patient was brought to the operating room, and after induction of spinal anesthesia the left lower extremity was prepped and draped in a normal fashion. The tourniquet was inflated to 270 mmHg. A longitudinal incision extending 3 finger breaths above the superior pole of the patella extending to the medial aspect the tibial tubercle was then made. The skin and subcutaneous tissues were divided sharply. Electrocautery was used for hemostasis. A medial parapatellar arthrotomy was then performed. The medial soft tissues to include the superficial and deep portions of the medial collateral ligament as well as the medial hamstring tendons were elevated subperiosteally. The proximal medial tibia osteophytes were carefully removed. The patella was everted. The knee was flexed. A portion of the retropatellar fat pad was excised sharply. The anterior cruciate ligament was sacrificed. A starting hole was made in the distal femur 1 cm anterior to the posterior cruciate origin. An intramedullary femoral guide was gently inserted planning on 5 valgus distal cut with 9 mm distal resection. The cutting block was pinned in place. The distal cut was then made. The posterior referencing sizing guide was utilized. 3 of external rotation was built into the system and verified off the trans- epicondylar axis and the posterior condyles. I felt size 5 narrow was most appropriate. The cutting block was pinned in place. The anterior, posterior, and chamfer cuts were then made. The bone fragments were removed. A sulcus cut was then made with the appropriate guide. The trial size 5 femoral component was then placed and was fully seated. There was good anterior to posterior and medial to lateral fit. The distal peg holes were then drilled. The trial component was then removed. Attention was then paid towards preparing the proximal tibia. An extra medullary guide was utilized in line with the tibial shaft and second metatarsal distally. A 7 posterior slope was planned. I p lanned on 2 mm resection from the medial compartment. The cutting block was pinned in place. The proximal tibial cut was then made. The bone was removed in one fragment. The remnants of the medial and lateral menisci were excised the capsule junction with electrocautery. The tibia sized most appropriately at size 4. . The posterior osteophytes off the distal femur were carefully removed with a curved osteotome. The trial tibial and femoral components were placed along with a 9 millimeters articular surface. I was able to obtain full flexion and extension with good stability with varus and valgus stress. After several flexion and extension cycles, the tibial rotation was marked with electrocautery in line with the medial one third of the tibial tubercle. Attention was then paid towards preparing the patella. A patella reamer was utilized taking this down to 14 mm of bone stock. A good flush cut was made. The patella sized most appropriately at 35 millimeters. The peg holes were then drilled. The trial component was placed. The knee was taken through a range of motion. I had good patellofemoral tracking with no hands technique. The trial components were then removed. The tibia was prepared in the appropriate rotation with appropriate drill and keel punch. The flexion and extension gaps were checked and felt to be symmetric. The bony surfaces were prepared with pulsatile lavage and dried. The deep tibial component was then cemented in place and was fully seated. Excess cement was removed. The femoral component was cemented in place and was fully seated. Again excess cement was removed. The trial 9 millimeters surface was then inserted in the knee was put in full extension. The patella component was cemented in place. After the cement had sufficiently hardened, the knee was again taken through a range of motion. Again there was good stability in flexion and extension with varus and valgus stress. The trial articular surface was then removed. The final 9 mm articular surface was placed and was impacted. Care was taken to avoid any soft tissue interposition. Pulsatile lavage was again utilized. The tourniquet was deflated with approximately 60 minutes total tourniquet time. There was minimal drainage therefore a deep drain was not placed. The medial parapatellar arthrotomy was then closed with #2 Ethibond suture. The subcutaneous tissues were reapproximated interrupted 2-0 Vicryl sutures. The skin was reapproximated with 3-0 subarticular strata fix suture. Skin tape and adhesive was applied. A sterile dressing was applied. The patient was then awoken from sedation and transferred to recovery room in good condition. Blood loss was estimated at 50 milliliters. No complications were incurred. Sponge and needle counts were correct at the end the case. Jaylon GIBBONS assisted during the major components this case to include exposure, bone resection, and implantation.
--- NOTE | 2021-08-10 15:25 | XR ---
EXAMINATION TYPE: XR knee limited LT DATE OF EXAM: 08/10/2021 COMPARISON: NONE HISTORY: 61-year-old female evaluation for postoperative abnormality in alignment TECHNIQUE: 2 views FINDINGS: Images show placement of left total knee arthroplasty. Both distal femoral and proximal tibial compon ents of the prosthesis are well seated without periprosthetic fracture. Alignment grossly anatomic. T here is anterior soft tissue swelling with scattered soft tissue air as well as intra-articular air r elating to recent operation. IMPRESSION: Uncomplicated postoperative appearance left total knee arthroplasty.
[2021-08-10] MEDS ORDERED: ROPIVACAINE 0.2%-NS ON-Q PUMP 2 MG/ML EACH MISCELLANE ONE (15:27)
[2021-08-10] MEDS: HYDROcodone/APAP 7.5-325MG 1 EACH TAB PO PRN ×2 (17:44→23:43)
--- NOTE | 2021-08-10 17:53 | P.CON ---
Consult Note - . Consult date: 08/10/21 Assessment/Plan:: This is a 61-year-old female with a past medical history of coronary artery disease was admitted to the hospital for knee replacement and we'll consulted for medical management no chest pain no shortness of breath Past medical history coronary artery disease Constitutional: No acute distress, conversant, pleasant Eyes: Anicteric sclerae, moist conjunctiva, no lid-lag PERRLA ENMT: NC/AT Oropharynx clear, no erythema, exudates Neck: Supple, FROM, no masses, or JVD No carotid bruits No thyromegaly Lungs: Clear to auscultation Clear to percussion Normal respiratory effort, no accessory muscle use Cardiovascular: Heart regular in rate and rhythm, No murmurs, gallops, or rubs No peripheral edema Abdominal: Soft Nontender, no guarding, rebound or rigidity Abdomen moving with respiration Normoactive bowel sounds No hepatomegaly, No splenomegaly No palpable mass No abdominal wall hernia noted Skin: Normal temperature, tone, texture, turgor No induration No subcutaneous nodules No rash, lesions No ulcers Extremities: No digital cyanosis No clubbing Pedal pulses intact and symmetrical Radial pulses intact and symmetrical Normal gait and station No calf tenderness Psychiatric:Alert and oriented to person, place and time Appropriate affect Intact judgement Neuro: Muscles Strength 5/5 in all 4 extremities Sensation to light touch grossly present throughout Cranial nerves II-XII grossly intact No focal sensory deficits Assessment and plan Knee replacement Pain control Coronary artery disease stable resume home medications
[2021-08-10] MEDS ORDERED: SENNOSIDES-DOCUSATE SODIUM 1 EACH TAB PO SCH (21:00)
[2021-08-11] MEDS: HYDROmorphone 1 MG/ML 1 ML SYRINGE IVP PRN ×2 (01:09→06:10)
[2021-08-11] MEDS: HYDROcodone/APAP 7.5-325MG 1 EACH TAB PO PRN ×2 (05:19→12:34)
[2021-08-11 06:54] LABS: Basophils % (A) 0 %; Eosinophils # (A) 0.1 k/uL (0-0.7); Eosinophils % (A) 1 %; HCT 41.3 % (34.0-46.0); HGB 12.7 gm/dL (11.4-16.0); Lymphocytes # (A) 1.6 k/uL (1.0-4.8); Lymphocytes % (A) 14 %; MCH 28.8 pg (25.0-35.0); MCHC 30.8 g/dL (31.0-37.0); MCV 93.3 fL (80.0-100.0); Mean Platelet Volume 7.4; Monocytes % (A) 9 %; Neutrophils # (A) 8.1 k/uL (1.3-7.7); Neutrophils % (A) 74 %; Platelet Count 292 k/uL (150-450); RBC 4.43 m/uL (3.80-5.40); RDW 12.4 % (11.5-15.5)
[2021-08-11 08:27] VITALS: BP 133/65; PULSE 71; RESP 16
[2021-08-11] MEDS ORDERED: ASPIRIN 325 MG TAB PO SCH (09:00)
[2021-08-11] MEDS ORDERED: diphenhydrAMINE 25 MG CAP PO PRN (10:10)
[2021-08-11] MEDS ORDERED: hydrOXYzine pamoate 25 MG CAP PO PRN ×2 (10:30→13:20)
--- NOTE | 2021-08-11 11:49 | P.PN ---
Subjective Progress Note Date: 08/11/21 Principal diagnosis: Left knee osteoarthritis Patient was seen at bedside this morning resting comfortably with dressing over the knee. Patient says most the pain she is having is located both in the front and the back of the knee. Patient denies any radiation of pain. Patient says that [place] seems to help only for a couple hours at a time. Patient says she is looking forward to going home today. Patient says she does have a walker. Patient says she does live at home with . Patient says physical therapy went well this morning as she was able to walk up-and-down a couple steps and around the room using walker. Patient denies chest pain, fever, shortness of br eath, nausea, vomiting, change in vision, loss of bowel/bladder control. Objective - Vital Signs Vital signs: Vital Signs Temp 99.4 F 08/11/21 08:00 Pulse 71 08/11/21 08:00 Resp 16 08/11/21 08:00 BP 133/65 08/11/21 08:00 Pulse Ox 96 08/11/21 08:00 FiO2 Intake & Output 08/10/21 08/11/21 08/11/21 18:59 06:59 18:59 Intake Total 751 220 Output Total 50 Balance 701 220 Weight 94.8 kg Intake: IV 751 Oral 220 Output: Estimated Blood Loss 50 Other: Voiding Method Toilet # Voids 0 1 - Exam Left knee: Incision is clean, dry, and intact. The mesh tape is in good condition. There is minimal soft tissue swelling and ecchymosis surrounding the medial and lateral aspects of the incision. Calf is soft, no tenderness with palpation. Plantar flexion, dorsiflexion, EHL, FHL are intact. Sensory exam to light touch throughout the extremity is intact, dorsal pedis pulses 2+. - Labs CBC & Chem 7: 08/11/21 05:58 Labs: Abnormal Lab Results - Last 24 Hours (Table) 08/11/21 Range/Units 05:58 WBC 11.0 H (3.8-10.6) k/uL MCHC 30.8 L (31.0-37.0) g/dL Neutrophils # 8.1 H (1.3-7.7) k/uL Assessment and Plan Assessment: 1. Left knee osteoarthritis - Postoperative day #1 status post Left total knee arthroplasty Plan: 1. Left knee osteoarthritis - left total knee arthroplasty performed yesterday, 08/10/2021. Patient stable at bedside this morning. Plan discharge home today with health services. Patient does have a walker at home. 2. Appreciate medical management 3. Pain management - [place] 7.5 mg/325 mg; Vistaril 25 mg 4. DVT prophylaxis - aspirin 325 mg twice a day x 2 weeks. Patient has aspirin at home 5. GI ppx - senna; going home with Colace 6. PT/OT - WBAT w/walker 7. Encourage incentive spirometer use 8. Discharge planning - Discharge home with health services today. Time with Patient: Less than 30
--- NOTE | 2021-08-11 11:52 | P.DS ---
Providers Date of admission: 08/11/21 02:25 Expected date of discharge: 08/11/21 Attending physician: Guille Estrada Consults: 08/10/21 14:31 Consult Physician Routine Consulting Provider: Dena Viveros Consult Reason/Comments: Medical Management s/p left total knee arthroplasty Do you want consulting provider notified?: Yes [facility] Course: Date of admission: 08/10/2021 Date of discharge: 08/11/2021 Admission diagnosis: Left knee osteoarthritis Discharge diagnosis: Same Attending physician: Dr. Estrada Surgical procedures: Left total knee arthroplasty Brief history: Patient is a 61-year-old female with a history of progressive primary left knee osteoarthritis. At this point patient has failed conservative treatment measures and has opted to proceed with a elective left total knee arthroplasty. Hospital course: Details of patient's surgery can be found in operative report. Patient tolerated the procedure well and was subsequently transported to orthopedic floor. Patient's orthopeidc and medical care was provided daily. Patient had daily laboratory tests performed for evaluation of overall blood counts. Patient had daily physical therapy to include strengthening range of motion as well as education with walker ambulation. Patient was treated with aspirin for their postoperative DVT prophylaxis during their inpatient stay. Patient was noted to have a relatively uneventful postoperative course. Patient reported satisfactory pain control with oral pain medications by postoperative day 1. Patient showed satisfactory progress with physical therapy. Patient moved steadily through the program and had no difficulty meeting the goals by postoperative day . Given patient's otherwise satisfactory course and having met physical therapy goals, plan is to discharge patient home with health services on postoperative day 1. Discharge condition/disposition: Patient will be discharged home with health services in stable condition. Discharge medications: Instructions are given on resumption of patient's normal daily medications per primary care recommendation, in addition patient will be prescribed [place] 7.5 mg/325 mg; Vistaril 25 mg; Colace; aspirin. Discharge instructions: 1. Wound care and infection precautions, keep incision dry and covered while showering, no lotions, creams, moisturizers. No soaking, tubs, pools, hottubs. Do not scrub over the incision. 2. Weight-bear as tolerated with walker / cane until follow-up. 3. Ice and elevate when necessary. Do not exceed 20 minutes per hour with ice pack. 4. Utilize compression sleeve until seen at first follow up appointment. 5. Visiting nursing care. 6. Home physical therapy including home CPM. 7. Pain meds and anticoagulants per prescription. 8. Pain medication has potential to cause constipation. Increase oral fluid and fiber intake. Contact primary care provider if you have not had a bowel movement within 48 hours after discharge 9. No anti-inflammatory medication until discussed at first post operative visit, this including Motrin, Aleve, Mobic, Diclofenac. 10. Follow up in office at 2 weeks postop with Mayco Sweeney PA-C / Jaylon Pelaez PA-C 11. Follow up with your primary care doctor 7-10 days after discharge. 12. Contact [facility] with any questions, . Keep incision clean, dry, intact. While showering, cover incision with Saran wrap. Keep the mesh tape on until follow-up appointment in office in 2 weeks Medications: [place] 7.5 mg/325 mg; Vistaril 25 mg; Colace; aspirin - take Aspirin 325 mg twice a day x 2 weeks. Patient already has aspirin at home Assessment: Left knee osteoarthritis Procedures: Left total knee arthroplasty Patient Condition at Discharge: Good Plan - Discharge Summary Discharge Rx Participant: Yes New Discharge Prescriptions: No Action amLODIPine [Norvasc] 10 mg PO DAILY Ergocalciferol [Vitamin D2] 50,000 unit PO MO RX: Aspirin 325 mg PO DAILY RX: ALPRAZolam [Xanax] 0.25 mg PO TID PRN PRN Reason: Anxiety diphenhydrAMINE [Benadryl] 25 mg PO HS buPROPion XL [Wellbutrin XL] 150 mg PO DAILY Spironolactone [Aldactone] 25 mg PO DAILY Levothyroxine Sodium [Synthroid] 75 mcg PO DAILY RX: Citalopram Hydrobromide [CeleXA] 20 mg PO DAILY cloNIDine HCL [Catapres] 0.1 mg PO DAILY Loratadine-Pseudoeph 10-240 mg [Claritin-D 24 Hour] 1 tab PO DAILY Discharge Medication List Ergocalciferol [Vitamin D2] 50,000 unit PO MO 03/09/15 [History] RX: Aspirin 325 mg PO DAILY 03/09/15 [History] amLODIPine [Norvasc] 10 mg PO DAILY 03/09/15 [History] RX: ALPRAZolam [Xanax] 0.25 mg PO TID PRN 04/01/16 [History] Levothyroxine Sodium [Synthroid] 75 mcg PO DAILY 08/06/21 [History] Loratadine-Pseudoeph 10-240 mg [Claritin-D 24 Hour] 1 tab PO DAILY 08/06/21 [History] RX: Citalopram Hydrobromide [CeleXA] 20 mg PO DAILY 08/06/21 [History] Spironolactone [Aldactone] 25 mg PO DAILY 08/06/21 [History] buPROPion XL [Wellbutrin XL] 150 mg PO DAILY 08/06/21 [History] cloNIDine HCL [Catapres] 0.1 mg PO DAILY 08/06/21 [History] diphenhydrAMINE [Benadryl] 25 mg PO HS 08/06/21 [History] Follow up Appointment(s)/Referral(s): Jaylon Pelaez PAC [[employer]] - 08/26/21 9:10 am [facility], [NON-STAFF] - As Needed ([facility] will call you to schedule your in home physical therapy and nursing visits. ) Patient Instructions/Handouts: Knee Replacement (DC) Activity/Diet/Wound Care/Special Instructions: Discharge instructions: 1. Wound care and infection precautions, keep incision dry and covered while showering, no lotions, creams, moisturizers. No soaking, tubs, pools, hottubs. Do not scrub over the incision. 2. Weight-bear as tolerated with walker / cane until follow-up. 3. Ice and elevate when necessary. Do not exceed 20 minutes per hour with ice pack. 4. Utilize compression sleeve until seen at first follow up appointment. 5. Visiting nursing care. 6. Home physical therapy including home CPM. 7. Pain meds and anticoagulants per prescription. 8. Pain medication has potential to cause constipation. Increase oral fluid and fiber intake. Contact primary care provider if you have not had a bowel movement within 48 hours after discharge 9. No anti-inflammatory medication until discussed at first post operative visit, this including Motrin, Aleve, Mobic, Diclofenac. 10. Follow up in office at 2 weeks postop with Mayco Sweeney PA-C / Jaylon Pelaez PA-C 11. Follow up with your primary care doctor 7-10 days after discharge. 12. Contact [facility] with any questions, . Keep incision clean, dry, intact. While showering, cover incision with Saran wrap. Keep the mesh tape on until follow-up appointment in office in 2 weeks Medications: [place] 7.5 mg/325 mg; Vistaril 25 mg; Colace; aspirin - take Aspirin 325 mg twice a day x 2 weeks. Patient already has aspirin at home Discharge Disposition: HOME WITH HOME HEALTH SERVICES
[2021-08-11] MEDS: LACTATED RINGERS 1,000 ML IV SCH (12:18)
[2021-08-11 12:42] VITALS: TEMP 101.1
--- NOTE | 2021-08-11 14:28 | P.PN ---
Subjective Progress Note Date: 08/11/21 Principal diagnosis: Patient Name: Ivy Cannon Date of : 1960 Patient Status: Surgical Day Care Attending Provider: Guille Estrada Date: 08/10/21 17:53 Initialization Date: 08/10/21 17:53 History of Present Illness H&P Date: 08/10/21 Patient feels okay Past Medical History Past Medical History: Hyperlipidemia, Hypertension, Myocardial Infarction (MA), Osteoarthritis (OA), Sleep Apnea/CPAP/BIPAP, Thyroid Disorder Additional Past Medical History / Comment(s): covid 08/2020, hx gestational diabetes, anxiety Last Myocardial Infarction Date:: 2004 History of Any Multi-Drug Resistant Organisms: None Reported Past Surgical History: Section, Heart Catheterization, Orthopedic Surgery, Tubal Ligation, Uterine Ablation Additional Past Surgical History / Comment(s): parathyroidectomy, C/S x 3, ganglion cyst removed from rt heel, ganglion cyst removed left arm, Past Anesthesia/Blood Transfusion Reactions: Motion Sickness, Postoperative Nausea & Vomiting (PONV) Past Psychological History: Anxiety Smoking Status: Never smoker Past Alcohol Use History: Occasional Past Drug Use History: None Reported - Past Family History Father Family Medical History: Cancer, Deep Vein Thrombosis (DVT) Medications and Allergies Home Medications Medication Instructions Recorded Confirmed Type Aspirin 325 mg PO DAILY 03/09/15 08/10/21 History Ergocalciferol [Vitamin D2] 50,000 unit PO MO 03/09/15 08/10/21 History amLODIPine [Norvasc] 10 mg PO DAILY 03/09/15 08/10/21 History ALPRAZolam [Xanax] 0.25 mg PO TID PRN 04/01/16 08/10/21 History Citalopram Hydrobromide [CeleXA] 20 mg PO DAILY 08/06/21 08/10/21 History Levothyroxine Sodium [Synthroid] 75 mcg PO DAILY 08/06/21 08/10/21 History Loratadine-Pseudoeph 10-240 mg 1 tab PO DAILY 08/06/21 08/10/21 History [Claritin-D 24 Hour] Spironolactone [Aldactone] 25 mg PO DAILY 08/06/21 08/10/21 History buPROPion XL [Wellbutrin XL] 150 mg PO DAILY 08/06/21 08/10/21 History cloNIDine HCL [Catapres] 0.1 mg PO DAILY 08/06/21 08/10/21 History diphenhydrAMINE [Benadryl] 25 mg PO HS 08/06/21 08/10/21 History Allergies Allergy/AdvReac Type Severity Reaction Status Date / Time cephalexin [From Keflex] Allergy Dyspnea Verified 08/10/21 11:43 cephalexin monohydrate Allergy Dyspnea Verified 08/10/21 11:43 [From Keflex] [id number] Reductase Allergy MUSCLE PAIN Verified 08/10/21 11:43 Inhibitor Physical Exam Vitals: Vital Signs Temp Pulse Resp BP Pulse Ox 08/10/21 17:11 70 125/78 97 08/10/21 16:15 64 18 125/60 98 08/10/21 16:00 63 18 123/57 98 08/10/21 15:45 66 18 101/49 98 08/10/21 15:30 67 18 118/60 98 08/10/21 15:15 63 18 134/59 98 08/10/21 15:00 97.3 F L 69 15 125/62 98 08/10/21 14:50 97.3 F L 69 15 118/56 100 08/10/21 12:20 77 18 160/77 99 08/10/21 11:18 97.2 F L 72 18 155/70 98 Intake and Output 08/10/21 08/10/21 08/10/21 06:59 14:59 22:59 Intake Total 751 Output Total 50 Balance 701 Intake: IV 751 Output: Estimated Blood Loss 50 Other: Weight 94.8 kg 94.8 kg Thrombosis Risk Factor Assmnt - Choose All That Apply Any of the Below Risk Factors Present?: Yes Each Factor Represents 1 point: Acute MA, Obesity (BMI >25) Each Risk Factor Represents 2 Points: Age 61-74 years, Major surgery Each Risk Factor Represents 3 Points: Family history of DVT/PE Each Risk Factor Represents 5 Points: Elective major lower extremity arthoplasty Thrombosis Risk Factor Assessment Total Risk Factor Score: 14 Thrombosis Risk Factor Assessment Level: High Risk Original Note: Consult Note - . Consult date: 08/10/21 Assessment/Plan:: This is a 61-year-old female with a past medical history of coronary artery disease was admitted to the hospital for knee replacement and we'll consulted for medical management no chest pain no shortness of breath Past medical history coronary artery disease Constitutional: No acute distress, conversant, pleasant Eyes: Anicteric sclerae, moist conjunctiva, no lid-lag PERRLA ENMT: NC/AT Oropharynx clear, no erythema, exudates Neck: Supple, FROM, no masses, or JVD No carotid bruits No thyromegaly Lungs: Clear to auscultation Clear to percussion Normal respiratory effort, no accessory muscle use Cardiovascular: Heart regular in rate and rhythm, No murmurs, gallops, or rubs No peripheral edema Abdominal: Soft Nontender, no guarding, rebound or rigidity Abdomen moving with respiration Normoactive bowel sounds No hepatomegaly, No splenomegaly No palpable mass No abdominal wall hernia noted Skin: Normal temperature, tone, texture, turgor No induration No subcutaneous nodules No rash, lesions No ulcers Extremities: No digital cyanosis No clubbing Pedal pulses intact and symmetrical Radial pulses intact and symmetrical Normal gait and station No calf tenderness Psychiatric:Alert and oriented to person, place and time Appropriate affect Intact judgement Neuro: Muscles Strength 5/5 in all 4 extremities Sensation to light touch grossly present throughout Cranial nerves II-XII grossly intact No focal sensory deficits Assessment and plan Knee replacement Pain control Patient cleared to be discharged to have low-grade fever that resolved advised if the fever recurs to follow-up with primary care physician but currently patient is asymptomatic Objective - Vital Signs Vital signs: Vital Signs Temp 101.1 F H 08/11/21 12:41 Pulse 71 08/11/21 08:00 Resp 16 08/11/21 08:00 BP 133/65 08/11/21 08:00 Pulse Ox 96 08/11/21 08:00 FiO2 Intake & Output 08/10/21 08/11/21 08/11/21 18:59 06:59 18:59 Intake Total 751 220 Output Total 50 Balance 701 220 Weight 94.8 kg Intake: IV 751 Oral 220 Output: Estimated Blood Loss 50 Other: Voiding Method Toilet Toilet # Voids 0 1 1 - Labs CBC & Chem 7: 08/11/21 05:58 Labs: Abnormal Lab Results - Last 24 Hours (Table) 08/11/21 Range/Units 05:58 WBC 11.0 H (3.8-10.6) k/uL MCHC 30.8 L (31.0-37.0) g/dL Neutrophils # 8.1 H (1.3-7.7) k/uL
== END 2021-08-11 15:21 | disposition home health service (06) ==
LOC: OR 10:59 → 4SSUR 14:48 → OR 08-11 02:25 → 4SSUR 08-11 02:25
PROVIDERS: ADMIT Orthopaedic Surgery; ATTEND Orthopaedic Surgery
DX: M17.12 Unilateral primary osteoarthritis, left knee (principal); I11.9 Hypertensive heart disease without heart failure; E78.5 Hyperlipidemia, unspecified; F41.9 Anxiety disorder, unspecified; I25.10 Atherosclerotic heart disease of native coronary artery without angina pectoris; Z98.891 History of uterine scar from previous surgery; Z80.9 Family history of malignant neoplasm, unspecified; I25.2 Old myocardial infarction; G47.33 Obstructive sleep apnea (adult) (pediatric); Z86.16 Personal history of COVID-19; Z98.51 Tubal ligation status; E89.0 Postprocedural hypothyroidism; Z98.890 Other specified postprocedural states; Z86.32 Personal history of gestational diabetes; Z79.1 Long term (current) use of non-steroidal anti-inflammatories (NSAID); Z79.82 Long term (current) use of aspirin; Z79.890 Hormone replacement therapy; Z79.899 Other long term (current) drug therapy; Z88.1 Allergy status to other antibiotic agents; Z82.49 Family history of ischemic heart disease and other diseases of the circulatory system; Z88.8 Allergy status to other drugs, medicaments and biological substances
CPT/HCPCS: 97161; 64999; 64448; 76942; 85025; 88300; 73560; 27447; G0378; C1713 ×2; C1776; J2250; J0690 ×3; J2405; J3010; J1170 ×2; J2795 ×2; J2704

== ENCOUNTER → 2022-08-03 | Outpatient (CLI) | payer OTHER ==
--- NOTE | 2022-08-04 09:38 | MM ---
Reason for Exam: Screening (asymptomatic). Last mammogram was performed 1 year(s) and 7 month(s) ago. Patient History: Menarche at age 10. First Full-Term at age 27. Postmenopausal. Patient has history of breast feeding. Paternal grandmother had breast cancer at or over age 50. Risk Values: Iris 5 year model risk: 1.9%. NCI Lifetime model risk: 8.1%. Prior Study Comparison: 08/27/2014 Bilateral Screening Mammogram, [facility]. 07/11/2018 Bilateral Screening Mammogram, [facility]. 12/31/2020 Bilateral Screening Mammogram, [facility]. Tissue Density: There are scattered fibroglandular densities. Findings: Analyzed By CAD. There is no suspicious group of microcalcifications or new suspicious mass in either breast. Overall Assessment: Negative, BI-RAD 1 Management: Screening Mammogram of both breasts in 1 year. . Patient should continue monthly self-breast exams. A clinical breast exam by your physician is recommended on an annual basis. This exam should not preclude additional follow-up of suspicious palpable abnormalities. Note on Iris scores and lifetime risk: 1. A Iris score greater than 3% is considered moderate risk. If this is the case, consider specialist referral to assess eligibility for a risk reducing agent. 2. If overall lifetime risk for the development of breast cancer is 20% or higher, the patient may qualify for future screening with alternating mammogram and breast MRI. Electronically signed and approved by: Chalino Frazier M.D. Radiologist
== END | disposition home or self-care (01) ==
LOC: RADMAMWWP 15:03
PROVIDERS: ATTEND Family Medicine
DX: Z12.31 Encounter for screening mammogram for malignant neoplasm of breast (principal); Z78.0 Asymptomatic menopausal state; Z80.3 Family history of malignant neoplasm of breast
CPT/HCPCS: 77063; 77067

== ENCOUNTER 2023-10-01 16:24 | Emergency (ER) | payer OTHER ==
--- NOTE | 2023-10-01 18:16 | ED ---
Dizziness [facility] - General Chief Complaint: Dizziness Stated Complaint: Dizziness Time Seen by Provider: 10/01/23 16:38 Source: patient, RN notes reviewed Mode of arrival: ambulatory Limitations: no limitations - History of Present Illness Initial Comments: This is a 63-year-old female with a past history of vertigo presents emergency department chief complaint of intermittent dizziness over the past week. States that this dizziness is described as a room spinning sensation and is exacerbated positionally as a turning her head quickly from [id number] or with quick movements. Patient states that she does have a history of vertigo and the symptoms are the same as compared to previous attacks however her symptoms have not lasted for over a week in the past. Patient states that she is attempted take Antivert at home with no relief. Denies neurological deficits. Believes that the episodes will last upwards of 10 minutes when the dizziness does occur. - Related Data Home Medications Medication Instructions Recorded Confirmed Aspirin 325 mg PO DAILY 03/09/15 08/10/21 Ergocalciferol [Vitamin D2] 50,000 unit PO MO 03/09/15 08/10/21 amLODIPine [Norvasc] 10 mg PO DAILY 03/09/15 08/10/21 ALPRAZolam [Xanax] 0.25 mg PO TID PRN 04/01/16 08/10/21 Citalopram Hydrobromide [CeleXA] 20 mg PO DAILY 08/06/21 08/10/21 Levothyroxine Sodium [Synthroid] 75 mcg PO DAILY 08/06/21 08/10/21 Loratadine-Pseudoeph 10-240 mg 1 tab PO DAILY 08/06/21 08/10/21 [Claritin-D 24 Hour] Spironolactone [Aldactone] 25 mg PO DAILY 08/06/21 08/10/21 buPROPion XL [Wellbutrin XL] 150 mg PO DAILY 08/06/21 08/10/21 cloNIDine HCL [Catapres] 0.1 mg PO DAILY 08/06/21 08/10/21 diphenhydrAMINE [Benadryl] 25 mg PO HS 08/06/21 08/10/21 Previous Rx's Medication Instructions Recorded Docusate [Colace] 100 mg PO DAILY #30 capsule 08/11/21 HYDROcodone/APAP 7.5-325MG [Binger 1 - 2 each PO Q6HR PRN #32 tab 08/11/21 7.5] hydrOXYzine pamoate [Vistaril] 25 mg PO Q6HR #30 capsule 08/11/21 Metoclopramide [Reglan] 10 mg PO TID PRN #15 tab 10/01/23 Allergies Allergy/AdvReac Type Severity Reaction Status Date / Time cephalexin [From Keflex] Allergy Dyspnea Verified 10/01/23 16:44 cephalexin monohydrate Allergy Dyspnea Verified 10/01/23 16:44 [From Keflex] [id number] Reductase Allergy MUSCLE PAIN Verified 10/01/23 16:44 Inhibitor Review of Systems ROS Statement: Those systems with pertinent positive or pertinent negative responses have been documented in the HPI. ROS Other: All systems not noted in ROS Statement are negative. Past Medical History Past Medical History: Hypertension, Myocardial Infarction (NM), Sleep Apnea/CPAP/BIPAP, Thyroid Disorder Additional Past Medical History / Comment(s): covid 08/2020, hx gestational diabetes, anxiety Last Myocardial Infarction Date:: 2004 History of Any Multi-Drug Resistant Organisms: None Reported Past Surgical History: Section, Heart Catheterization, Tubal Ligation, Uterine Ablation Additional Past Surgical History / Comment(s): throidectomy Past Anesthesia/Blood Transfusion Reactions: Motion Sickness, Postoperative Nausea & Vomiting (PONV) Past Psychological History: Anxiety Smoking Status: Never smoker Past Alcohol Use History: Occasional Past Drug Use History: None Reported - Past Family History Father Family Medical History: Cancer, Deep Vein Thrombosis (DVT) General Exam - General Exam Comments Initial Comments: Visual Physical Exam Vital signs reviewed General: Well-appearing, nontoxic, no acute distress. Head: Normocephalic, atraumatic Eyes: PERRLA, EOMI ENT: Airway patent Chest: Nonlabored breathing Skin: No visual rash, normal skin tone Neuro: Alert and oriented 3 Musculoskeletal: No gross abnormalities Limitations: no limitations General appearance: alert, in no apparent distress Head exam: Present: atraumatic, normocephalic, normal inspection Eye exam: Present: normal appearance, PERRL, EOMI. Absent: scleral icterus, conjunctival injection, periorbital swelling ENT exam: Present: normal exam, mucous membranes moist Neck exam: Present: normal inspection. Absent: tenderness, meningismus, lymphadenopathy Respiratory exam: Present: normal lung sounds bilaterally. Absent: respiratory distress, wheezes, rales, rhonchi, stridor Cardiovascular Exam: Present: regular rate, normal rhythm, normal heart sounds. Absent: systolic murmur, diastolic murmur, rubs, gallop, clicks GI/Abdominal exam: Present: soft, normal bowel sounds. Absent: distended, tenderness, guarding, rebound, rigid Extremities exam: Present: normal inspection, full ROM, normal capillary refill. Absent: tenderness, pedal edema, joint swelling, calf tenderness Back exam: Present: normal inspection Neurological exam: Present: alert, oriented X3, CN II-XII intact Psychiatric exam: Present: normal affect, normal mood Skin exam: Present: warm, dry, intact, normal color. Absent: rash Course Vital Signs 10/01/23 10/01/23 10/01/23 16:43 18:54 19:42 Temperature 98.7 F 98 F Pulse Rate 68 55 L 62 Respiratory 18 18 16 Rate Blood Pressure 136/71 117/51 130/71 O2 Sat by Pulse 97 96 96 Oximetry 10/01/23 20:34 Temperature Pulse Rate 64 Respiratory 16 Rate Blood Pressure 124/64 O2 Sat by Pulse 97 Oximetry Medical Decision Making - Medical Decision Making I completed the quick note portion of this chart signed Kait Durham PA-C Was pt. sent in by a medical professional or institution ([facility], [facility] [facility], urgent care, hospital, or group home...) When possible be specific @ -No Did you speak to anyone other than the patient for history (EMS, parent, family, police, friend...)? What history was obtained from this source @ -No Did you review nursing and triage notes (agree or disagree)? Why? @ -I reviewed and agree with nursing and triage notes Were old charts reviewed (outside hosp., previous admission, EMS record, old EKG, old radiological studies, urgent care reports/EKG's, group home records)? Report findings @ -No old charts were reviewed Differential Diagnosis (chest pain, altered mental status, abdominal pain women, abdominal pain men, vaginal bleeding, weakness, fever, dyspnea, syncope, headache, dizziness, GI bleed, back pain, seizure, CVA, palpatations, mental health, musculoskeletal)? @ -Differential Dizziness: Benign paroxysmal positional Vertigo, Menieres disease, otitis media, acoustic neuroma, vertebrobasilar insufficiency, cerebellar stroke, encephalitis, hypovolemic, arrhythmia, coronary artery syndrome, anemia, this is not meant to be an all-inclusive list EKG interpreted by me (3pts min.). @ -As above X-rays interpreted by me (1pt min.). @ -None done CT interpreted by me (1pt min.). @ -CT brain without contrast no acute intracranial abnormality noted. U/S interpreted by me (1pt. min.). @ -None done What testing was considered but not performed or refused? (CT, X-rays, U/S, labs)? Why? @ -None What meds were considered but not given or refused? Why? @ -None Did you discuss the management of the patient with other professionals (professionals i.e. , PA, [employer], lab, RT, psych nurse, licensed master social worker, voice writing reporter, teacher, senior escrow officer, welfare project manager)? Give summary @ -No Was smoking cessation discussed for >3mins.? @ -No Was critical care preformed (if so, how long)? @ -No Were there social determinants of health that impacted care today? How? (Homelessness, low income, unemployed, alcoholism, drug addiction, transporta tion, low edu. Level, literacy, decrease access to med. care, [place] [facility], rehab)? @ -No Was there de-escalation of care discussed even if they declined (Discuss DNR or withdrawal of care, Hospice)? DNR status @ -No What co-morbidities impacted this encounter? (DM, HTN, Smoking, COPD, CAD, Cancer, CVA, ARF, Chemo, Hep., AIDS, mental health diagnosis, sleep apnea, morbid obesity)? @ -None Was patient admitted / discharged? Hospital course, mention meds given and route, prescriptions, significant lab abnormalities, going to OR and other pertinent info. @ -Discharged. 63-year-old female with dizziness. On examination there are no acute neurological deficits noted. No noted nystagmus or syncope. Dizziness is exacerbated with quick head rotation. Patient is resting comfortably in the room. She will be provided with IV fluids, Benadryl, Reglan to aid in dizziness pending labs. Additionally, patient is sent for CT brain due to persistent dizziness that is different from her previous episodes of vertigo. Patient is in agreement with plan. CBC, CMP unremarkable. CT negative for acute process. On reevaluation, patient states that her weakness has improved. Patient will be sent a prescription for Reglan to take only as needed for intermittent gas. Additionally, I discussed with the patient states that she does have a history of seasonal allergies. There are no signs of fluid behind the patient's ears however recommend that she continue use of antihistamine with Claritin. Clariti n or Zyrtec at home to minimize potential symptoms of allergies exacerbating vertigo. All questions answered at bedside and strict return parameters discussed with the patient she is verbalized understanding. Case discussed with Dr. Wade Undiagnosed new problem with uncertain prognosis? @ -No Drug Therapy requiring intensive monitoring for toxicity (Heparin, Nitro, Insulin, Cardizem)? @ -No Were any procedures done? @ -No Diagnosis/symptom? @ -vertigo, dizziness Acute, or Chronic, or Acute on Chronic? @ -Acute Uncomplicated (without systemic symptoms) or Complicated (systemic symptoms)? @ -uncomplicated Side effects of treatment? @ -No Exacerbation, Progression, or Severe Exacerbation? @ -No Poses a threat to life or bodily function? How? (Chest pain, USA, NM, pneumonia, PE, COPD, DKA, ARF, appy, cholecystitis, CVA, Diverticulitis, Homicidal, Suicidal, threat to staff... and all critical care pts) @ -No - Lab Data Result diagrams: 10/01/23 18:53 10/01/23 18:53 Lab Results 10/01/23 10/01/23 Range/Units 18:53 18:53 WBC 7.9 (3.8-10.6) k/uL RBC 4.84 (3.80-5.40) m/uL Hgb 14.2 (11.4-16.0) gm/dL Hct 43.9 (34.0-46.0) % MCV 90.6 (80.0-100.0) fL MCH 29.2 (25.0-35.0) pg MCHC 32.3 (31.0-37.0) g/dL RDW 12.4 (11.5-15.5) % Plt Count 353 (150-450) k/uL MPV 7.2 Neutrophils % 62 % Lymphocytes % 25 % Monocytes % 8 % Eosinophils % 3 % Basophils % 0 % Neutrophils # 4.9 (1.3-7.7) k/uL Lymphocytes # 2.0 (1.0-4.8) k/uL Monocytes # 0.6 (0-1.0) k/uL Eosinophils # 0.3 (0-0.7) k/uL Basophils # 0.0 (0-0.2) k/uL Sodium 141 (137-145) mmol/L Potassium 4.8 (3.5-5.1) mmol/L Chloride 107 (98-107) mmol/L Carbon Dioxide 25 (22-30) mmol/L Anion Gap 9 mmol/L BUN 18 H (7-17) mg/dL Creatinine 0.79 (0.52-1.04) mg/dL Est GFR (CKD-EPI)AfAm >90 (>60 ml/min/1.73 sqM) Est GFR (CKD-EPI)NonAf 80 (>60 ml/min/1.73 sqM) Glucose 79 (74-99) mg/dL Calcium 9.9 (8.4-10.2) mg/dL Magnesium 2.0 (1.6-2.3) mg/dL Total Bilirubin 0.4 (0.2-1.3) mg/dL AST 26 (14-36) U/L ALT 23 (4-34) U/L Alkaline Phosphatase 83 (38-126) U/L Total Protein 7.4 (6.3-8.2) g/dL Albumin 4.6 (3.5-5.0) g/dL Disposition Clinical Impression: Vertigo Disposition: HOME SELF-CARE Condition: Good Instructions (If sedation given, give patient instructions): Dizziness (ED) Additional Instructions: To the emergency department for any new or worsening symptoms. Recommend he follow-up with your primary care provider next week for further evaluation. Take medication only as needed for intermittent dizziness. Recommend that you use antihistamine such as Claritin or Zyrtec. Prescriptions: Metoclopramide [Reglan] 10 mg PO TID PRN #15 tab PRN Reason: Nausea Is patient prescribed a controlled substance at d/c from ED?: No Referrals: Woo Martinez DO [Primary Care Provider] - 1-2 days Time of Disposition: 20:27
[2023-10-01 18:55] VITALS: TEMP 98
[2023-10-01 19:08] LABS: Basophils % (A) 0 %; Eosinophils # (A) 0.3 k/uL (0-0.7); Eosinophils % (A) 3 %; HCT 43.9 % (34.0-46.0); HGB 14.2 gm/dL (11.4-16.0); Lymphocytes % (A) 25 %; MCH 29.2 pg (25.0-35.0); MCHC 32.3 g/dL (31.0-37.0); MCV 90.6 fL (80.0-100.0); Mean Platelet Volume 7.2; Monocytes # (A) 0.6 k/uL (0-1.0); Monocytes % (A) 8 %; Neutrophils # (A) 4.9 k/uL (1.3-7.7); Neutrophils % (A) 62 %; Platelet Count 353 k/uL (150-450); RBC 4.84 m/uL (3.80-5.40); RDW 12.4 % (11.5-15.5); WBC 7.9 k/uL (3.8-10.6)
[2023-10-01 19:20] LABS: ALT 23 U/L (4-34); AST 26 U/L (14-36); African American GFR (CKD) >90 (>60 ml/min/1.73 sqM); Albumin 4.6 g/dL (3.5-5.0); Alkaline Phosphatase 83 U/L (38-126); Anion Gap 9 mmol/L; Blood Urea Nitrogen 18 mg/dL (7-17); Calcium 9.9 mg/dL (8.4-10.2); Carbon Dioxide 25 mmol/L (22-30); Chloride 107 mmol/L (98-107); Glucose 79 mg/dL (74-99); Non-African American GFR(CKD) 80 (>60 ml/min/1.73 sqM); Potassium 4.8 mmol/L (3.5-5.1); Sodium 141 mmol/L (137-145); Total Bilirubin 0.4 mg/dL (0.2-1.3); Total Protein 7.4 g/dL (6.3-8.2)
--- NOTE | 2023-10-01 19:28 | CT ---
EXAMINATION TYPE: CT brain wo con CT DLP: 1154.4 mGycm, Automated exposure control for dose reduction was used. DATE OF EXAM: 10/01/2023 6:44 PM COMPARISON: CT brain C-spine 04/01/2016. CLINICAL INDICATION:Female, 63 years old with history of persistent dizziness, dizziness TECHNIQUE: Brain: Axial noncontrast CT images of the brain were obtained with coronal and sagittal reformats cre ated and reviewed. Contrast used: None. Oral contrast used: None. FINDINGS: Brain: Extra-axial spaces: No abnormal extra-axial fluid collections. Ventricular system: Within normal limits Cerebral parenchyma: No acute intraparenchymal hemorrhage or mass effect. The allen-white junction is well differentiated. Cerebellum: Unremarkable. Mass effect: No evidence of midline shift. Intracranial vasculature: unremarkable Soft tissues: Normal. Calvarium/osseous structures: No depressed skull fracture. Paranasal sinuses and mastoid air cells: Mild scattered paranasal sinus disease. Visualized orbits: Orbital contents are intact. IMPRESSION: No acute intracranial process.
[2023-10-01] MEDS: METOCLOPRAMIDE 5 MG/ML 2 ML VIAL IVP STA (19:37)
[2023-10-01] MEDS: diphenhydrAMINE 50 MG/ML 1 ML VIAL IVP STA (19:39)
[2023-10-01] MEDS: SODIUM CHLORIDE 0.9% 1,000 ML IV STA (19:40)
[2023-10-01 19:44] VITALS: RESP 16
[2023-10-01 20:35] VITALS: BP 124/64; PULSE 64
== END 2023-10-01 20:39 | disposition home or self-care (01) ==
LOC: EC 16:24
DX: R42 Dizziness and giddiness (principal); Z88.1 Allergy status to other antibiotic agents; Z88.8 Allergy status to other drugs, medicaments and biological substances
CPT/HCPCS: 36415; 93005; 80053; 83735; 85025; 70450; 99284; 96374; 96375; 96361; J1200; J2765

== ENCOUNTER → 2024-07-18 | Outpatient (CLI) | payer OTHER, MEDICARE ==
--- NOTE | 2024-07-18 12:37 | MM ---
Reason for Exam: Screening (asymptomatic). Last mammogram was performed 2 year(s) and 0 month(s) ago. Patient History: Menarche at age 10. First Full-Term at age 27. Postmenopausal. Patient has history of breast feeding. Paternal grandmother had breast cancer at or over age 50. Mother had breast cancer, age 93. Risk Values: Iris 5 year model risk: 3.6%. NCI Lifetime model risk: 13.1%. Prior Study Comparison: 08/27/2014 Bilateral Screening Mammogram, [facility]. 07/11/2018 Bilateral Screening Mammogram, [facility]. 12/31/2020 Bilateral Screening Mammogram, [facility]. 08/03/2022 Bilateral MG 3D screening mammo w/cad, [facility]. Tissue Density: There are scattered areas of fibroglandular density. Findings: Analyzed By CAD. There is no suspicious group of microcalcifications or new suspicious mass in either breast. Overall Assessment: Negative, BI-RAD 1 Management: Screening Mammogram of both breasts in 1 year. . Patient should continue monthly self-breast exams. A clinical breast exam by your physician is recommended on an annual basis. This exam should not preclude additional follow-up of suspicious palpable abnormalities. Note on Iris scores and lifetime risk: 1. A Iris score greater than 3% is considered moderate risk. If this is the case, consider specialist referral to assess eligibility for a risk reducing agent. 2. If overall lifetime risk for the development of breast cancer is 20% or higher, the patient may qualify for future screening with alternating mammogram and breast MRI. [facility], , 07/18/2024 12:33 PM. Electronically signed and approved by: Feliberto Salmeron M.D.
== END | disposition home or self-care (01) ==
LOC: RADMAMWWP 11:57
PROVIDERS: ATTEND Family Medicine
DX: Z12.31 Encounter for screening mammogram for malignant neoplasm of breast (principal); R92.323 Mammographic fibroglandular density, bilateral breasts; Z78.0 Asymptomatic menopausal state; Z80.3 Family history of malignant neoplasm of breast
CPT/HCPCS: 77063; 77067